=== PATIENT | male | born 1950 | race Caucasian/White ===

== ENCOUNTER 2018-03-02 14:02 | Outpatient (CLI) | payer MEDICARE, MEDICAID ==
--- NOTE | 2018-03-02 14:41 | RAD ---
CHEST TWO VIEWS: History: Chest pain. Comparison: 04-06-16 FINDINGS: Mild blunting of left lateral costophrenic sulcus likely scarring, unchanged. No focal airspace conso lidation, pneumothorax or effusion. No acute osseous abnormality. IMPRESSION: No acute intrathoracic abnormality. No significant change from 04-06-16. POS: [facility]
== END 2018-03-02 14:03 | disposition home or self-care (01) ==
LOC: RAD 14:02
PROVIDERS: ATTEND Internal Medicine Critical Care Medicine
DX: R06.00 Dyspnea, unspecified (principal)
CPT/HCPCS: 71046

== ENCOUNTER 2018-03-09 12:45 | Outpatient (CLI) | payer MEDICARE, MEDICAID ==
--- NOTE | 2018-03-09 13:31 | RAD ---
CHEST TWO VIEWS: History: Dyspnea. Comparison: 03-02-18 FINDINGS: Cardiac silhouette and pulmonary vasculature are unremarkable. Mediastinum is midline with aortic naheed cification. No confluent airspace consolidation, pneumothorax or pleural fluid. IMPRESSION: 1. Atherosclerosis. 2. No active cardiopulmonary abnormalities are otherwise demonstrated. POS: [facility]
== END 2018-03-09 12:46 | disposition home or self-care (01) ==
LOC: RAD 12:45
PROVIDERS: ATTEND Internal Medicine Critical Care Medicine
DX: R06.00 Dyspnea, unspecified (principal); I70.90 Unspecified atherosclerosis
CPT/HCPCS: 71046

== ENCOUNTER 2020-05-14 10:45 | Outpatient (CLI) | payer MEDICARE, MEDICAID ==
--- NOTE | 2020-05-14 12:11 | MRI ---
MRI LUMBAR SPINE NONCONTRAST: DATE: 05/14/2020 HISTORY: 70-year-old male with "lumbar stenosis M 48.062 and synovial cyst M 71.38" COMPARISON: 02/21/2019 FINDINGS: Images are degraded by patient motion. For the purposes of this report, it will be assumed that there are 5 lumbar-type vertebrae. Vertebral body heights are maintained. Conus medullaris terminates at approximately L1-2. T12-L1:Essentially normal L1-2:Disc space maintained. Prominent diffuse disc bulge. Mild to moderate ligamentum flavum thickeni ng. Mild to moderate bilateral facet DJD. Mild central spinal canal stenosis. Moderate bilateral neural foraminal stenosis. No major interval change.. L2-3:T2-weighted axial image at the important image slice is severely degraded by patient motion, felicitas ing it difficult to evaluate the previously demonstrated right-sided synovial cyst that was effacing the right lateral aspect of the thecal sac. There is ligamentum flavum thickening that encro aches upon the right side of the spinal canal. The synovial cyst may or may not be slightly smaller. There continues to be high-grade central spinal canal stenosis at this level, severe. There is moderate to severe right and moderate left neural foraminal stenosis. There is moderate bilateral facet DJD. Mild to moderate disc space narrowing, asymmetrically worse on the right side wh ere there are prominent right-sided Modic type I new or worse since prior study. L3-4:Moderate to severe asymmetrically right-sided disc space narrowing due to concavity of lateral c urvature. Asymmetrical disc bulge. At least moderate bilateral facet DJD. Right lateral recess stenosis. Mild to moderate central spinal canal stenosis. Moderate bilateral neural foraminal stenosi s. No major interval change. L4-5:Slight retrolisthesis of L4 on L5. Moderate to severe disc space narrowing on the left side. Lef t-sided Modic type I endplate marrow changes. Lateral recess stenosis bilaterally. Diffuse disc bulge. Bilateral mild to moderate facet DJD. Mild central spinal canal stenosis. Moderate right and s evere left neural foraminal stenosis. No interval change. L5-S1:Moderate right and severe left facet DJD causes grade 1 anterolisthesis of L5 on S1. Moderate d isc space narrowing. Diffuse disc bulge. No central spinal canal stenosis. Mild to moderate right and moderate left neural foraminal stenosis. No interval change. IMPRESSION: 1) lumbar spondylosis with multilevel moderate to severe degenerative disc disease and facet osteoart hrosis. 2) severe central spinal canal stenosis at L2-3. 3) unfortunately, there is severe motion artifact on the critically important T2-weighted axial slice at L2-3 such that it is difficult to evaluate the known right-sided synovial cyst at that level. 4) lateral curvature 5) multilevel high-grade neural foraminal stenosis, worst on the left at L4-5.
--- NOTE | 2020-05-14 12:28 | RAD ---
Exam: Lumbar spine 3 views HISTORY: Chronic back pain. COMPARISON: None. FINDINGS: Five lumbar type vertebra. There is degenerative disc disease with vacuum disc phenomenon at L2-L3. V ertebral body heights are maintained. No fracture. There is atherosclerosis of a nonaneurysmal aorta. Spondylolisthesis: L5-S1: Neutral 9 mm of anterolisthesis; flexion 11 mm of anterolisthesis; extension 9 mm of anterolis thesis. IMPRESSION: Grade 1 anterolisthesis of L5 upon S1 with slight increase upon flexion. Transcribed Date/Time: 05/14/2020 1:21 PM
== END 2020-05-14 10:46 | disposition home or self-care (01) ==
LOC: SCSMRI 10:45
PROVIDERS: ATTEND Neurological Surgery
DX: M48.061 Spinal stenosis, lumbar region without neurogenic claudication (principal); M71.38 Other bursal cyst, other site; M43.17 Spondylolisthesis, lumbosacral region; M47.816 Spondylosis without myelopathy or radiculopathy, lumbar region; M51.36 Other intervertebral disc degeneration, lumbar region; M43.8X6 Other specified deforming dorsopathies, lumbar region
CPT/HCPCS: 72100; 72148